=== PATIENT | female | born 1985 | race Caucasian/White ===

== ENCOUNTER 2016-06-20 07:42 | Day surgery (SDC) | payer BC ==
[~2016-06-20] VITALS: Ht 160 cm; Wt 54.0 kg
[~2016-06-20 07:42] MED LIST: LEVO112T7 PO; MULT-1146 PO
[2016-06-20 08:26] LABS: BASOPHILS % 0.6 % (0.0-2.0); EOSINOPHILS % 0.1 % (0.0-5.0); HEMATOCRIT. 34.1 % (36.0-48.0); HEMOGLOBIN. 11.1 g/dL (12.0-16.0); LYMPHOCYTES % 30.7 % (20.0-50.0); MEAN CORPUSCULAR HEMOGLOBIN 26.5 pg (28.0-32.0); MEAN CORPUSCULAR HGB CONC 32.7 g/dL (31.0-37.0); MEAN CORPUSCULAR VOLUME 81.2 fL (81.0-99.0); MEAN PLATELET VOLUME 9.4 fl (7.4-10.4); MONOCYTES % 11.3 % (2.0-8.0); NEUTROPHILS % 57.3 % (40.0-76.0); PLATELET 207 x1000/uL (130-400); RED CELL DISTRIBUTION WIDTH 16.9 % (11.6-14.6); WHITE BLOOD COUNT 3.8 x1000/uL (4.5-11.0)
[2016-06-20] MEDS ORDERED: LACTATED RINGERS 1,000 ML IV SCH (08:30)
[2016-06-20 08:31] LABS: UCG SCREEN NEGATIVE
[2016-06-20 08:32] LABS: CLARITY URINE CLEAR (CLEAR); COLOR URINE YELLOW (YELLOW); GLUCOSE URINE NEGATIVE (NEGATIVE); KETONES URINE NEGATIVE (NEGATIVE); LEUKOCYTE ESTERASE URINE TRACE (NEGATIVE); NITRITE URINE NEGATIVE (NEGATIVE); OCCULT BLOOD URINE 3+ (NEGATIVE); PROTEIN URINE NEGATIVE (NEGATIVE); UROBILINOGEN URINE 0.2 E.U./dL (0.2-1.0)
[2016-06-20 08:35] LABS: PARTIAL THROMBOPLASTIN TIME 32.4 sec (24.0-34.0); PROTHROMBIN TIME 10.3 sec
[2016-06-20 08:49] LABS: MUCUS URINE 2+ /lpf (< = 2+); RBC URINE 0-2 /hpf (0-2); SQUAMOUS EPITHELIAL CELL URINE 3+ /lpf (RARE/1+); WBC URINE 0-2 /hpf (0-2)
[2016-06-20 08:50] LABS: BACTERIA URINE 2+
[2016-06-20] MEDS ORDERED: METHYLENE BLUE 1% VIAL 1ML ONE (10:32)
[2016-06-20] MEDS ORDERED: MIDAZOLAM HCL 2 MG/2 ML VIAL ONE ×2 (10:33→10:41)
[2016-06-20] MEDS ORDERED: ONDANSETRON HCL 4MG/2ML VIAL ONE (10:43)
[2016-06-20] MEDS ORDERED: DEXAMETHASONE 4MG/ML 1ML VIAL ONE (10:44)
[2016-06-20] MEDS ORDERED: PROPOFOL 200MG/20ML VIAL IV ONE (10:46)
[2016-06-20] MEDS ORDERED: ROCURONIUM BROMIDE 10MG/ML VIAL 5ML IV ONE (10:49)
[2016-06-20] MEDS ORDERED: ATROPINE SULFATE 0.4MG/ML VIAL IV PRN (11:30)
[2016-06-20] MEDS ORDERED: FENTANYL CITRATE/PF 50MCG/ML 2ML VIAL IV PRN (11:30)
[2016-06-20] MEDS ORDERED: ONDANSETRON HCL 4MG/2ML VIAL IV PRN (11:30)
[2016-06-20] MEDS ORDERED: SKIN ADHESIVE 0.7 GM EA TOP ONE (12:34)
[2016-06-20] MEDS ORDERED: BUPIVACAINE/EPINEPH/PF 0.25%/0.0005 10ML ONE (12:42)
[2016-06-20] MEDS ORDERED: HYDROMORPHONE HCL/PF 2MG/ML (OR) ONE (12:43)
[2016-06-20] MEDS ORDERED: FENTANYL CITRATE/PF 50MCG/ML 2ML VIAL ONE (12:53)
[2016-06-20] MEDS: FENTANYL CITRATE/PF 50MCG/ML 2ML VIAL IV PRN ×2 (13:21→13:59)
[2016-06-20] MEDS: HYDROMORPHONE HCL/PF 2MG/ML CPJ IV PRN ×3 (14:03→14:25)
[2016-06-20] MEDS ORDERED: MIDAZOLAM HCL 5 MG/5 ML VIAL IV ONE (14:15)
[2016-06-20] MEDS ORDERED: MEPERIDINE HCL/PF 25MG/ML CPJ IV PRN (14:15)
[2016-06-20 14:40] VITALS: BP 103/60
== END 2016-06-20 16:00 | disposition home or self-care (01) ==
LOC: OR 07:42
PROVIDERS: ATTEND Obstetrics & Gynecology Obstetrics
DX: N92.6 Irregular menstruation, unspecified (principal); E03.9 Hypothyroidism, unspecified; N80.0 Endometriosis of uterus
CPT/HCPCS: 36415; 58350; 58558; 58662; 76770; 81001; 81025; 85025; 85610; 85730; 88305; G0168; J0171; J1100; J1170; J2175; J2250; J2405; J3010; J3490; J7120; Q9968; J2704

== ENCOUNTER → 2016-10-25 | Outpatient (CLI) | payer BC ==
[2016-10-25 12:57] LABS: HCG SCREEN POSITIVE
[2016-10-25 13:13] LABS: T4 FREE 0.92 ng/dL (0.76-1.46)
== END | disposition home or self-care (01) ==
LOC: LAB 12:06
PROVIDERS: ATTEND Internal Medicine
DX: Z32.00 Encounter for pregnancy test, result unknown (principal); E03.9 Hypothyroidism, unspecified
CPT/HCPCS: 36415; 84439; 84443; 84702; 84703

== ENCOUNTER → 2016-10-28 | Outpatient (CLI) | payer BC ==
[~2016-10-28] MED LIST changes: +CHOL100044 PO; +DOCU-138 PO; +PNV1TABL76 PO
[2016-10-28 11:50] LABS: HCG SCREEN POSITIVE
== END | disposition home or self-care (01) ==
LOC: LAB 09:26
PROVIDERS: ATTEND Internal Medicine
DX: Z32.00 Encounter for pregnancy test, result unknown (principal)
CPT/HCPCS: 36415; 84702; 84703

== ENCOUNTER → 2016-11-08 | Outpatient (CLI) | payer BC ==
[~2016-11-08] MED LIST changes: -CHOL100044 PO; -DOCU-138 PO; -PNV1TABL76 PO
== END | disposition home or self-care (01) ==
LOC: LAB 12:07
PROVIDERS: ATTEND Obstetrics & Gynecology Obstetrics
DX: Z32.00 Encounter for pregnancy test, result unknown (principal)
CPT/HCPCS: 36415; 84702

== ENCOUNTER → 2016-11-10 | Outpatient (CLI) | payer BC | END | disposition home or self-care (01) | LOC: LAB 14:20 | PROVIDERS: ATTEND Obstetrics & Gynecology Obstetrics | DX: Z32.00 Encounter for pregnancy test, result unknown (principal); N91.2 Amenorrhea, unspecified | CPT/HCPCS: 36415; 84702 ==

== ENCOUNTER → 2016-11-12 | Outpatient (CLI) | payer BC | END | disposition home or self-care (01) | LOC: LAB 14:32 | PROVIDERS: ATTEND Obstetrics & Gynecology Obstetrics | DX: N91.2 Amenorrhea, unspecified (principal) | CPT/HCPCS: 36415; 84702 ==

== ENCOUNTER → 2016-11-13 | Outpatient (CLI) | payer BC | END | disposition home or self-care (01) | LOC: US 13:13 | PROVIDERS: ATTEND Obstetrics & Gynecology Obstetrics | DX: O26.841 Uterine size-date discrepancy, first trimester (principal); O20.8 Other hemorrhage in early pregnancy; Z3A.01 Less than 8 weeks gestation of pregnancy | CPT/HCPCS: 76801 ==

== ENCOUNTER → 2016-12-11 | Outpatient (CLI) | payer BC ==
[2016-12-11 15:05] LABS: CARBON DIOXIDE 23 mEq/L (21-32); CHLORIDE 101 mEq/L (98-107); T4 FREE 1.13 ng/dL (0.76-1.46)
[2016-12-11 15:26] LABS: BASOPHILS % 0.3 % (0.0-2.0); EOSINOPHILS % 0.1 % (0.0-5.0); HEMATOCRIT. 33.3 % (36.0-48.0); HEMOGLOBIN. 11.4 g/dL (12.0-16.0); LYMPHOCYTES % 17.9 % (20.0-50.0); MEAN CORPUSCULAR HEMOGLOBIN 27.9 pg (28.0-32.0); MEAN CORPUSCULAR VOLUME 81.3 fL (81.0-99.0); MEAN PLATELET VOLUME 9.8 fl (7.4-10.4); MONOCYTES % 8.6 % (2.0-8.0); NEUTROPHILS % 73.1 % (40.0-76.0); PLATELET 227 x1000/uL (130-400); RED BLOOD CELL COUNT 4.09 mill/uL (4.2-5.4); RED CELL DISTRIBUTION WIDTH 15.8 % (11.6-14.6)
[2016-12-11 16:31] LABS: HEPATITIS B SURFACE ANTIGEN NEGATIVE
[2016-12-14 13:13] LABS: HGB A 97.6 % (94.0-98.0); HGB A2 2.4 % (0.7-3.1); HGB SOLUBILITY Negative (Negative)
[2016-12-16 07:13] LABS: 25-HYDROXY VITAMIN D3 39 ng/mL (.)
== END | disposition home or self-care (01) ==
LOC: LAB 13:32
PROVIDERS: ATTEND Obstetrics & Gynecology Obstetrics
DX: Z34.00 Encounter for supervision of normal first pregnancy, unspecified trimester (principal)
CPT/HCPCS: 36415; 80053; 82306; 82947; 83021; 83036; 84439; 84443; 85025; 85660; 86803; 86850; 86900; 87086; 87186; 87340

== ENCOUNTER → 2017-01-10 | Outpatient (CLI) | payer BC ==
[2017-01-10 18:21] LABS: T4 FREE 1.25 ng/dL (0.76-1.46)
== END | disposition home or self-care (01) ==
LOC: LAB 17:34
PROVIDERS: ATTEND Internal Medicine Endocrinology, Diabetes & Metabolism
DX: E05.00 Thyrotoxicosis with diffuse goiter without thyrotoxic crisis or storm (principal)
CPT/HCPCS: 36415; 83520; 84439; 84443; 86376

== ENCOUNTER → 2017-02-04 | Outpatient (CLI) | payer BC ==
[2017-02-04 10:03] LABS: T4 FREE 1.14 ng/dL (0.76-1.46)
== END | disposition home or self-care (01) ==
LOC: LAB 09:19
PROVIDERS: ATTEND Internal Medicine Endocrinology, Diabetes & Metabolism
DX: E05.00 Thyrotoxicosis with diffuse goiter without thyrotoxic crisis or storm (principal)
CPT/HCPCS: 36415; 84439; 84443

== ENCOUNTER 2017-02-27 11:56 | Observation (INO) | payer BC ==
[~2017-02-27] VITALS: Ht 157.5 cm; Wt 59.4 kg
[2017-02-27] MEDS ORDERED: DOCU-138 PO (12:15)
[2017-02-27] MEDS ORDERED: CHOL100044 PO (12:15)
[2017-02-27] MEDS ORDERED: PNV1TABL76 PO (12:15)
[2017-02-27 12:56] LABS: CLARITY URINE CLEAR (CLEAR); COLOR URINE YELLOW (YELLOW); GLUCOSE URINE NEGATIVE (NEGATIVE); KETONES URINE TRACE (NEGATIVE); LEUKOCYTE ESTERASE URINE NEGATIVE (NEGATIVE); NITRITE URINE NEGATIVE (NEGATIVE); OCCULT BLOOD URINE NEGATIVE (NEGATIVE); PH URINE 5.5 (4.5-8.0); PROTEIN URINE NEGATIVE (NEGATIVE); SPECIFIC GRAVITY URINE 1.026 (1.005-1.030)
== END 2017-02-27 22:06 | disposition home or self-care (01) ==
LOC: L&D 11:56
PROVIDERS: ADMIT Obstetrics & Gynecology Obstetrics; ATTEND Obstetrics & Gynecology Obstetrics
DX: O26.892 Other specified pregnancy related conditions, second trimester (principal); R10.2 Pelvic and perineal pain; Z3A.22 22 weeks gestation of pregnancy
CPT/HCPCS: 76815; 76817; 81003; 99281; G0378

== ENCOUNTER → 2017-05-05 | Outpatient (CLI) | payer BC ==
[~2017-05-05] MED LIST changes: +CHOL100044 PO; +DOCU-138 PO; -MULT-1146 PO; +PNV1TABL76 PO
[2017-05-05 14:23] LABS: HEMATOCRIT 35.6 % (36.0-48.0); HEMOGLOBIN 11.9 g/dL (12.0-16.0)
[2017-05-05 14:45] LABS: T4 FREE 1.03 ng/dL (0.76-1.46)
== END | disposition home or self-care (01) ==
LOC: LAB 13:51
PROVIDERS: ATTEND Obstetrics & Gynecology Obstetrics
DX: D64.9 Anemia, unspecified (principal); E03.9 Hypothyroidism, unspecified
CPT/HCPCS: 36415; 84439; 84443; 84481; 85014; 85018

== ENCOUNTER 2017-07-04 23:37 | Observation (INO) | payer BC ==
[~2017-07-04] VITALS: Ht 157.5 cm; Wt 71.2 kg
== END 2017-07-05 12:27 | disposition home or self-care (01) ==
LOC: L&D 23:37
PROVIDERS: ADMIT Obstetrics & Gynecology Obstetrics; ATTEND Obstetrics & Gynecology Obstetrics
DX: O46.93 Antepartum hemorrhage, unspecified, third trimester (principal); O48.1 Prolonged pregnancy; Z3A.40 40 weeks gestation of pregnancy
CPT/HCPCS: 76815; 99281; G0378

== ENCOUNTER 2017-07-08 12:43 | Observation (INO) | payer BC ==
[~2017-07-08] VITALS: Ht 157.5 cm; Wt 68.5 kg
[2017-07-08] MEDS ORDERED: LEVO150T8 PO (12:52)
== END 2017-07-08 14:00 | disposition home or self-care (01) ==
LOC: L&D 12:43
PROVIDERS: ADMIT Obstetrics & Gynecology Obstetrics; ATTEND Obstetrics & Gynecology Obstetrics
DX: O48.1 Prolonged pregnancy (principal); Z3A.41 41 weeks gestation of pregnancy
CPT/HCPCS: 59025; 76815; 76818; G0378

== ENCOUNTER 2017-07-09 14:44 | Inpatient (IN) | payer BC ==
[~2017-07-09] VITALS: Ht 157.5 cm; Wt 64.0 kg
[~2017-07-09 14:44] MED LIST changes: -LEVO112T7 PO; +LEVO150T8 PO
[2017-07-09] MEDS ORDERED: NALOXONE HCL 0.4 MG/ML 1ML VIAL IM PRN (15:15)
[2017-07-09] MEDS ORDERED: CARBOPROST TROMETHAMINE 250 MCG/ML AMPUL IM PRN (15:15)
[2017-07-09] MEDS ORDERED: BUTORPHANOL TARTRATE 2 MG/ML VIAL IV PRN (15:15)
[2017-07-09] MEDS ORDERED: METHYLERGONOVINE MALEATE 0.2 MG/ML IM PRN (15:15)
[2017-07-09] MEDS ORDERED: LIDOCAINE HCL 1% 20ML VIAL (Pyxis) INJ INFIL SCH (15:15)
[2017-07-09] MEDS ORDERED: DINOPROSTONE 10MG VAGINAL INSERT VG ONE (15:15)
[2017-07-09] MEDS ORDERED: PENICILLIN G POTASSIUM 5 MMU in DEXT 5% WATER 100 ML IV SCH (15:30)
[2017-07-09] MEDS: LACTATED RINGERS 1,000 ML IV SCH (15:44)
[2017-07-09 16:13] LABS: CLARITY URINE CLOUDY (CLEAR); COLOR URINE YELLOW (YELLOW); KETONES URINE TRACE (NEGATIVE); LEUKOCYTE ESTERASE URINE 3+ (NEGATIVE); NITRITE URINE NEGATIVE (NEGATIVE); OCCULT BLOOD URINE 2+ (NEGATIVE); PROTEIN URINE NEGATIVE (NEGATIVE); SPECIFIC GRAVITY URINE 1.013 (1.005-1.030); UROBILINOGEN URINE 0.2 E.U./dL (0.2-1.0)
[2017-07-09 16:17] LABS: INR 0.9; PARTIAL THROMBOPLASTIN TIME 31.2 sec (23.4-31.0); PROTHROMBIN TIME 9.1 sec (9.4-11.6)
[2017-07-09 16:18] LABS: BASOPHILS % 0.1 % (0.0-2.0); HEMATOCRIT. 38.5 % (36.0-48.0); HEMOGLOBIN. 13.4 g/dL (12.0-16.0); LYMPHOCYTES % 18.3 % (20.0-50.0); MEAN CORPUSCULAR HEMOGLOBIN 30.8 pg (28.0-32.0); MEAN CORPUSCULAR VOLUME 88.5 fL (81.0-99.0); MEAN PLATELET VOLUME 11.5 fl (7.4-10.4); MONOCYTES % 6.8 % (2.0-8.0); NEUTROPHILS % 74.8 % (40.0-76.0); PLATELET 166 x1000/uL (130-400); RED BLOOD CELL COUNT 4.35 mill/uL (4.2-5.4); RED CELL DISTRIBUTION WIDTH 13.9 % (11.6-14.6)
[2017-07-09 16:23] LABS: *AMPHETAMINES SCREEN URINE NEGATIVE (NEGATIVE); *BARBITURATES SCREEN URINE NEGATIVE (NEGATIVE); *BENZODIAZEPINES SCREEN URINE NEGATIVE (NEGATIVE); *COCAINE SCREEN URINE NEGATIVE (NEGATIVE)
[2017-07-09 16:24] LABS: CANNABINOID URINE SCREEN NEGATIVE (NEGATIVE); METHADONE URINE SCREEN NEGATIVE (NEGATIVE); OPIATES URINE SCREEN NEGATIVE (NEGATIVE); PHENCYCLIDINE URINE SCREEN NEGATIVE (NEGATIVE)
[2017-07-09 16:51] LABS: HEPATITIS B SURFACE ANTIGEN NEGATIVE; RUBELLA IGG 106.8 IU/mL (4.99-10)
[2017-07-09] MEDS ORDERED: PENICILLIN G POTASSIUM 2.5 MMU in DEXTROSE 5% WATER 50 ML IV SCH (19:30)
[2017-07-09] MEDS: CLINDAMYCIN 900 MG in DEXTROSE 5% WATER 50 ML IV SCH (20:58)
[2017-07-10] MEDS: CLINDAMYCIN 900 MG in DEXTROSE 5% WATER 50 ML IV SCH ×3 (05:47→22:19)
[2017-07-10] MEDS: MISOPROSTOL 100MCG TABLET VG SCH ×2 (09:56→16:40)
[2017-07-10] MEDS: MISOPROSTOL 100MCG TABLET PO SCH (20:48)
[2017-07-11] MEDS: MISOPROSTOL 100MCG TABLET PO SCH ×2 (00:50→04:46)
[2017-07-11] MEDS: DEXT 5%/LR + PITOCIN 20UNITS/L 1,000 ML IV SCH (08:58)
[2017-07-11] MEDS ORDERED: METHYLERGONOVINE MALEATE 0.2 MG/ML IM PRN (10:00)
[2017-07-11] MEDS ORDERED: LIDOCAINE HCL 1% 20ML VIAL (Pyxis) INJ INFIL SCH (10:00)
[2017-07-11] MEDS ORDERED: CARBOPROST TROMETHAMINE 250 MCG/ML AMPUL IM PRN (10:00)
[2017-07-11] MEDS ORDERED: NALOXONE HCL 0.4 MG/ML 1ML VIAL IM PRN (10:00)
[2017-07-11] MEDS ORDERED: BUTORPHANOL TARTRATE 2 MG/ML VIAL IV PRN (10:00)
[2017-07-11] MEDS: CLINDAMYCIN 900 MG in DEXTROSE 5% WATER 50 ML IV SCH ×2 (14:04→22:04)
[2017-07-11] MEDS: LACTATED RINGERS 1,000 ML IV SCH (19:30)
[2017-07-11] MEDS ORDERED: BUPIVACAINE HCL/PF 0.25% (2.5MG/ML) 10ML ONE (22:44)
[2017-07-11] MEDS ORDERED: BUPIVACAINE HCL/NS/PF EPIDURAL 100 ML EP ONE (22:44)
[2017-07-11] MEDS ORDERED: FENTANYL CITRATE/PF 50MCG/ML 5ML VIAL ONE (22:45)
[2017-07-11] MEDS ORDERED: BUPIVACAINE HCL/NS/PF EPIDURAL 100 ML EP SCH (23:30)
[2017-07-11] MEDS ORDERED: LACTATED RINGERS 1,000 ML IV SCH (23:45)
[2017-07-12] MEDS: CLINDAMYCIN 900 MG in DEXTROSE 5% WATER 50 ML IV SCH ×3 (06:12→20:20)
[2017-07-12] MEDS ORDERED: BUPIVACAINE HCL/NS/PF EPIDURAL 100 ML EP ONE (07:27)
[2017-07-12] MEDS ORDERED: FENTANYL CITRATE/PF 50MCG/ML 2ML VIAL ONE ×2 (07:28→15:02)
[2017-07-12] MEDS: DEXT 5%/LR + PITOCIN 20UNITS/L 1,000 ML IV SCH (14:05)
[2017-07-12] MEDS: ACETAMINOPHEN 500MG TABLET PO PRN (14:39)
[2017-07-12] MEDS ORDERED: GENTAMICIN 80MG PREMIX 100 ML IV SCH (15:00)
[2017-07-12] MEDS ORDERED: LIDOCAINE HCL/PF 2% 20MG/ML 5 ML/VIAL ONE ×2 (15:45→15:46)
[2017-07-12] MEDS: GENTAMICIN SULFATE 80 MG in SODIUM CHLORIDE 0.9% 50 ML IV SCH (15:56)
[2017-07-12] MEDS ORDERED: ONDANSETRON HCL 4MG/2ML VIAL IV PRN ×2 (17:15→18:45)
[2017-07-12] MEDS ORDERED: MORPHINE SULFATE/PF 1MG/ML 10ML AMP ONE (17:33)
[2017-07-12] MEDS ORDERED: OXYTOCIN 10 UNITS in LACTATED RINGERS 1,000 ML IV SCH (18:00)
[2017-07-12] MEDS ORDERED: DIPHENHYDRAMINE 50MG/ML VIAL IM PRN (18:45)
[2017-07-12] MEDS ORDERED: HYDROMORPHONE HCL/PF 2MG/ML CPJ IV PRN (18:45)
[2017-07-12] MEDS ORDERED: KETOROLAC 30MG/ML VIAL IV PRN (18:45)
[2017-07-12] MEDS ORDERED: LABETALOL 5MG/ML SYR 20 MG/4 ML SYRINGE IV PRN (18:45)
[2017-07-12] MEDS ORDERED: MEPERIDINE HCL/PF 25MG/ML CPJ IV PRN (18:45)
[2017-07-12 22:30] VITALS: BP 90/57
[2017-07-12 23:45] VITALS: BP 93/55
[2017-07-13] MEDS: GENTAMICIN SULFATE 80 MG in SODIUM CHLORIDE 0.9% 50 ML IV SCH ×3 (00:04→15:06)
[2017-07-13] MEDS: CLINDAMYCIN 900 MG in DEXTROSE 5% WATER 50 ML IV SCH ×3 (02:22→14:28)
[2017-07-13 06:00] VITALS: BP 95/58
[2017-07-13 09:00] VITALS: BP 90/49
[2017-07-13 09:58] LABS: HEMOGLOBIN. 10.8 g/dL (12.0-16.0); MEAN CORPUSCULAR HEMOGLOBIN 30.6 pg (28.0-32.0); MEAN CORPUSCULAR VOLUME 88.3 fL (81.0-99.0); MEAN PLATELET VOLUME 10.9 fl (7.4-10.4); PLATELET 152 x1000/uL (130-400); RED BLOOD CELL COUNT 3.51 mill/uL (4.2-5.4)
[2017-07-13 11:19] LABS: PLATELET ESTIMATE NORMAL
[2017-07-13 15:33] VITALS: BP 107/57
[2017-07-13] MEDS ORDERED: RHO(D) IMMUNE GLOBULIN 300 MCG/SYR IM NR (17:15)
[2017-07-13] MEDS: CLINDAMYCIN HCL 150MG CAPSULE PO SCH (18:12)
[2017-07-13] MEDS: ACETAMINOPHEN 500MG TABLET PO PRN (18:12)
[2017-07-13 19:30] VITALS: BP 106/56
[2017-07-13] MEDS ORDERED: HYDROCODONE/ACETAMINOPHEN 5/325MG TABLET PO PRN (21:30)
[2017-07-13] MEDS: HYDROCODONE/ACETAMINOPHEN 10/325MG TABLET PO PRN (21:40)
[2017-07-13] MEDS ORDERED: DOCUSATE SODIUM 100MG CAPSULE ONE (21:44)
[2017-07-14] VITALS: BP 102/68
[2017-07-14 04:00] VITALS: BP 95/56
[2017-07-14] MEDS: CLINDAMYCIN HCL 150MG CAPSULE PO SCH ×4 (05:59→18:12)
[2017-07-14] MEDS: HYDROCODONE/ACETAMINOPHEN 10/325MG TABLET PO PRN ×4 (06:03→21:51)
[2017-07-14 07:37] LABS: HEMATOCRIT. 27.5 % (36.0-48.0); HEMOGLOBIN. 9.4 g/dL (12.0-16.0); MEAN CORPUSCULAR HEMOGLOBIN 30.5 pg (28.0-32.0); PLATELET 155 x1000/uL (130-400); RED CELL DISTRIBUTION WIDTH 14.1 % (11.6-14.6)
[2017-07-14 08:30] VITALS: BP 104/66
[2017-07-14] MEDS: IBUPROFEN 400MG TABLET PO PRN ×3 (12:18→21:48)
[2017-07-14 13:59] LABS: PLATELET ESTIMATE NORMAL
[2017-07-14 16:24] VITALS: BP 114/67
[2017-07-14 19:35] VITALS: BP 112/77
[2017-07-14] MEDS ORDERED: DOCUSATE SODIUM 100MG CAPSULE PO SCH (21:00)
[2017-07-14 23:55] VITALS: BP 101/63
[2017-07-15] MEDS: ACETAMINOPHEN 500MG TABLET PO PRN (00:13)
[2017-07-15 04:00] VITALS: BP 109/62
[2017-07-15] MEDS: HYDROCODONE/ACETAMINOPHEN 10/325MG TABLET PO PRN ×3 (04:08→12:32)
[2017-07-15] MEDS: IBUPROFEN 400MG TABLET PO PRN ×2 (04:10→11:05)
[2017-07-15 07:46] VITALS: BP 107/78
== END 2017-07-15 14:30 | disposition home or self-care (01) | DRG 765 ==
LOC: OBSVTOIN 14:44 → L&D 14:44 → 7EST PP/OB 07-12 22:15
PROVIDERS: ADMIT Obstetrics & Gynecology Obstetrics; ATTEND Obstetrics & Gynecology Obstetrics
PROC: 3E0P7VZ Introduction of Hormone into Female Reproductive, Via Natural or Artificial Opening (ICD-10-PCS; 2017-07-09)
PROC: 10D00Z1 Extraction of Products of Conception, Low, Open Approach (ICD-10-PCS; principal; 2017-07-12 18:30)
DX: O41.03X0 Oligohydramnios, third trimester, not applicable or unspecified (principal); O41.1030 Infection of amniotic sac and membranes, unspecified, third trimester, not applicable or unspecified; O33.9 Maternal care for disproportion, unspecified; O99.824 Streptococcus B carrier state complicating childbirth; O48.0 Post-term pregnancy; O62.2 Other uterine inertia; O76 Abnormality in fetal heart rate and rhythm complicating labor and delivery; Z37.0 Single live birth; Z3A.41 41 weeks gestation of pregnancy
CPT/HCPCS: 36415; 80305; 81003; 82565; 84520; 85007; 85025; 85027; 85610; 85730; 86592; 86703; 86762; 86850; 86886; 86900; 87070; 87077; 87186; 87205; 87340; 88305; 88307; 90384; C1893; J1170; J1580; J1885; J2274; J2540; J2590; J3010; J3490; J7060; J7120; A4315

== ENCOUNTER 2017-07-20 11:59 | Emergency (ER) | payer BC ==
[~2017-07-20] VITALS: Ht 157.5 cm; Wt 60.0 kg
[2017-07-20 15:21] VITALS: BP 112/66
== END 2017-07-20 15:20 | disposition home or self-care (01) ==
LOC: ER 12:27
DX: L03.90 Cellulitis, unspecified (principal); Z98.890 Other specified postprocedural states
CPT/HCPCS: 99283

== ENCOUNTER → 2017-10-25 | Outpatient (CLI) | payer BC ==
[2017-10-25 15:59] LABS: BASOPHILS % 0.2 % (0.0-2.0); EOSINOPHILS % 0.1 % (0.0-5.0); HEMATOCRIT. 38.5 % (36.0-48.0); HEMOGLOBIN. 12.9 g/dL (12.0-16.0); LYMPHOCYTES % 28.3 % (20.0-50.0); MEAN CORPUSCULAR HEMOGLOBIN 28.5 pg (28.0-32.0); MEAN CORPUSCULAR VOLUME 85.1 fL (81.0-99.0); MEAN PLATELET VOLUME 9.1 fl (7.4-10.4); MONOCYTES % 8.7 % (2.0-8.0); NEUTROPHILS % 62.7 % (40.0-76.0); PLATELET 253 x1000/uL (130-400); RED BLOOD CELL COUNT 4.53 mill/uL (4.2-5.4); RED CELL DISTRIBUTION WIDTH 13.2 % (11.6-14.6)
[2017-10-25 16:02] LABS: CHLORIDE 102 mEq/L (98-107)
[2017-10-25 16:09] LABS: LDL CHOLESTEROL 61 mg/dL (5-100)
[2017-10-25 16:10] LABS: HDL CHOLESTEROL 67 mg/dL (40-59)
== END | disposition home or self-care (01) ==
LOC: LAB 15:15
PROVIDERS: ATTEND Internal Medicine
DX: Z00.01 Encounter for general adult medical examination with abnormal findings (principal); R79.89 Other specified abnormal findings of blood chemistry
CPT/HCPCS: 36415; 80053; 80061; 82306; 83036; 84443; 85025